=== PATIENT | female | born 1985 | race African-American/Black ===

== ENCOUNTER 2017-05-05 18:04 | Emergency (ER) | payer OTHER ==
[~2017-05-05 18:04] MED LIST: ALBUTEROL INHAL17 GM IH; KEPPRA XR500 MG PO; KEPPRA1000 MG PO; TEGRETOL XR100 MG PO; TEGRETOL XR200 MG PO
== END 2017-05-05 20:20 | disposition left against medical advice (07) ==
LOC: ER 18:04
DX: Z53.21 Procedure and treatment not carried out due to patient leaving prior to being seen by health care provider (principal)

== ENCOUNTER 2021-08-23 20:34 | Emergency (ER) | payer OTHER ==
[~2021-08-23] VITALS: Ht 160 cm; Wt 99.8 kg
[2021-08-23] MEDS ORDERED: VITAMIN D31250 MC1 PO (20:59)
[2021-08-23] MEDS ORDERED: LAMOTRIGINE150 MG PO (20:59)
[2021-08-23] MEDS ORDERED: NEURONTIN 300M300 M2 PO (20:59)
[2021-08-23] MEDS ORDERED: CLONAZEPAM 1 MG1 M1 PO (20:59)
[2021-08-23] MEDS ORDERED: NAPROSYN500 M1 PO (21:34)
[2021-08-23 21:53] VITALS: BP 137/56
== END 2021-08-23 21:53 | disposition home or self-care (01) ==
LOC: ER 20:34
DX: S86.911A Strain of unspecified muscle(s) and tendon(s) at lower leg level, right leg, initial encounter (principal); J45.909 Unspecified asthma, uncomplicated; Z88.8 Allergy status to other drugs, medicaments and biological substances; Z79.899 Other long term (current) drug therapy; W18.30XA Fall on same level, unspecified, initial encounter; Y93.89 Activity, other specified; Y92.89 Other specified places as the place of occurrence of the external cause; Y99.9 Unspecified external cause status